=== PATIENT | female | born 1985 | race Native Hawaiian/Other Pacific Islander ===

== ENCOUNTER 2019-01-31 14:00 | Day surgery (SDC) | payer BC, OTHER ==
[~2019-01-31 14:00] MED LIST: BC PILL PO; CIPR-262 PO; HYDR-3326 PO
[2019-01-31] MEDS ORDERED: CEFAZOLIN 100 ML IV ONE (14:24)
[2019-01-31 14:53] LABS: *BILIRUBIN,URIN NEGATIVE (NEGATIVE); *BLOOD, URINE NEGATIVE (NEGATIVE); *CLARITY,URINE CLOUDY (CLEAR); *COLOR,URINE DARK YELLOW (YELLOW); *KETONES,URINE NEGATIVE (NEGATIVE); *UROBILINOGEN,URINE 0.2 E.U./dl (NORMAL); LEUKOCYTE ESTERASE ,URINE 1+ (NEGATIVE); NITRITE, URINE NEGATIVE (NEGATIVE); UGLUCOSE NEGATIVE (NEGATIVE)
[2019-01-31 14:57] LABS: *URINE HCG, QUAL NEGATIVE (NEGATIVE)
[2019-01-31 15:03] LABS: RBC,URINE 0-3 /HPF (0-3)
[2019-01-31 15:04] LABS: BACTERIA,URINE FEW /HPF (NONE SEEN); SQUAMOUS EPITHELIAL CELL,UR MANY /HPF (NONE SEEN)
[2019-01-31] MEDS ORDERED: BUPIVACAINE/EPI PF 0.25% 30 ML VIAL ONE (15:06)
[2019-01-31] MEDS ORDERED: LIDOCAINE 0.5% MPF 50 ML VIAL ONE (15:06)
[2019-01-31] MEDS ORDERED: IOPAMIDOL 15 ML VIAL IT ONE (15:07)
[2019-01-31] MEDS ORDERED: MIDAZOLAM HCL 2 MG/2 ML VIAL ONE (16:55)
[2019-01-31] MEDS ORDERED: HYDROMORPHONE 2 MG/1 ML DISP.SYRIN ONE (16:55)
[2019-01-31] MEDS ORDERED: ROCURONIUM BROMIDE 50 MG/5 ML VIAL ONE (16:55)
[2019-01-31] MEDS ORDERED: ALBUTEROL SULFATE 8 GM HFA.AER.AD ONE (17:32)
[2019-01-31] MEDS ORDERED: LIDOCAINE HCL 2% 20 ML VIAL IJ ONE (18:25)
[2019-01-31] MEDS ORDERED: SEVOFLURANE 250 ML BOTTLE IH ONE (18:25)
[2019-01-31] MEDS ORDERED: CEFAZOLIN 1 G VIAL IM ONE (18:25)
[2019-01-31] MEDS ORDERED: GLYCOPYRROLATE 0.2 MG/ML VIAL IV ONE (18:25)
[2019-01-31] MEDS ORDERED: NEOSTIGMINE METHYLSULFATE 10 MG/10 ML VIAL IM ONE (18:25)
[2019-01-31] MEDS ORDERED: PROPOFOL 200 MG/20 ML BOTTLE IV ONE (18:25)
[2019-01-31] MEDS ORDERED: IV NORMAL SALINE 1000 ML BAG IV ONE (18:25)
[2019-01-31] MEDS ORDERED: KETOROLAC TROMETHAMINE 30 MG INJ IM ONE (18:25)
[2019-01-31] MEDS ORDERED: ONDANSETRON 4 MG/2 ML VIAL IV ONE (18:25)
[2019-01-31] MEDS ORDERED: DEXAMETHASONE SOD PHOSPHATE 4 MG INJ IV ONE (18:25)
[2019-01-31] MEDS ORDERED: FENTANYL CITRATE 100 MCG/2 ML AMPUL ONE ×2 (18:33→19:08)
[2019-01-31] MEDS ORDERED: ONDANSETRON 4 MG/2 ML VIAL ONE (18:39)
[2019-01-31] MEDS ORDERED: HYDROCODONE/APAP 5-325MG TABLET ONE (19:41)
== END 2019-01-31 20:31 | disposition home or self-care (01) ==
LOC: DS 14:00
PROVIDERS: ATTEND Surgery
DX: K80.10 Calculus of gallbladder with chronic cholecystitis without obstruction (principal); K76.0 Fatty (change of) liver, not elsewhere classified; J45.909 Unspecified asthma, uncomplicated; Z87.891 Personal history of nicotine dependence; K21.9 Gastro-esophageal reflux disease without esophagitis; E66.3 Overweight; Z98.890 Other specified postprocedural states
CPT/HCPCS: 84703; A4663; J0690; J1100; J1170; J1885; J2250; J2405; J2710; J3010; J3490; J3535; J7030; J7120; Q9967